=== PATIENT | female | born 1950 | race Caucasian/White ===

== ENCOUNTER 2019-05-27 08:40 | Outpatient (CLI) | payer OTHER, MEDICARE | END 2019-05-27 21:00 | disposition home or self-care (01) | LOC: SCT 08:40 | PROVIDERS: ATTEND Orthopaedic Surgery | DX: M47.812 Spondylosis without myelopathy or radiculopathy, cervical region (principal); M48.8X2 Other specified spondylopathies, cervical region; M81.0 Age-related osteoporosis without current pathological fracture; M48.02 Spinal stenosis, cervical region | CPT/HCPCS: 72125-TC ==